=== PATIENT | female | born 1935 | race Caucasian/White ===

== ENCOUNTER 2017-07-09 08:20 | Emergency (ER) | payer OTHER ==
[~2017-07-09] VITALS: Ht 165.1 cm; Wt 80.3 kg
[2017-07-09] MEDS ORDERED: SULFAMETHOXAZO1 EACH (08:32)
[2017-07-09] MEDS ORDERED: PYRIDIUM200 MG (08:32)
[2017-07-09] MEDS ORDERED: ASPIR 8181 MG (08:33)
[2017-07-09] MEDS ORDERED: TAMS0.4C (08:33)
[2017-07-09] MEDS ORDERED: ZOCOR80 MG (08:33)
[2017-07-09] MEDS ORDERED: ZESTRIL10 M1 (08:33)
== END 2017-07-09 14:15 | disposition home or self-care (01) ==
LOC: ER 08:20
DX: R60.0 Localized edema (principal); L29.8 Other pruritus; N28.9 Disorder of kidney and ureter, unspecified; N39.0 Urinary tract infection, site not specified; T78.49XA Other allergy, initial encounter; X58.XXXA Exposure to other specified factors, initial encounter

== ENCOUNTER 2019-12-13 15:46 | Inpatient (IN) | payer OTHER ==
[~2019-12-13] VITALS: Ht 175.3 cm; Wt 77.1 kg
[~2019-12-13 15:46] MED LIST: ASPIR 8181 MG; PYRIDIUM200 MG; SULFAMETHOXAZO1 EACH; TAMS0.4C; ZESTRIL10 M1; ZOCOR80 MG
== END 2019-12-16 08:53 | disposition left against medical advice (07) | DRG 66 ==
LOC: ER 15:46 → SURG 21:18 → SEC-K 12-14 15:36 → MEDI 12-15 17:17 → SEC-K 12-15 22:45
PROVIDERS: ADMIT Internal Medicine; ATTEND Internal Medicine
PROC: BW28ZZZ Computerized Tomography (CT Scan) of Head (ICD-10-PCS; principal; 2019-12-13)
PROC: B345ZZZ Ultrasonography of Bilateral Common Carotid Arteries (ICD-10-PCS; 2019-12-13)
PROC: B24BZZZ Ultrasonography of Heart with Aorta (ICD-10-PCS; 2019-12-13)
PROC: B030ZZZ Magnetic Resonance Imaging (MRI) of Brain (ICD-10-PCS; 2019-12-13)
PROC: 4A12X4Z Monitoring of Cardiac Electrical Activity, External Approach (ICD-10-PCS; 2019-12-13)
DX: I63.212 Cerebral infarction due to unspecified occlusion or stenosis of left vertebral artery (principal); R47.81 Slurred speech; I10 Essential (primary) hypertension; N40.0 Benign prostatic hyperplasia without lower urinary tract symptoms; I08.1 Rheumatic disorders of both mitral and tricuspid valves; R00.1 Bradycardia, unspecified; R29.701 NIHSS score 1; Z03.818 Encounter for observation for suspected exposure to other biological agents ruled out
CPT/HCPCS: 70544